=== PATIENT | female | born 1955 | race Caucasian/White ===

== ENCOUNTER 2023-02-04 07:58 | Observation (INO) ==
[~2023-02-04 07:58] MED LIST: Buffered Lidocaine 1% SYRIN 1 ml INTRADERM ONE; Lactated Ringers 1000 ml BAG 1,000 ML IV SCH
[2023-02-04] MEDS ORDERED: Dexamethasone IV 4 MG/ML VIAL 1 ml VIAL ONE ×2 (08:33→12:11)
[2023-02-04] MEDS ORDERED: Ondansetron 4 mg VIAL 2 MG/ML 2 ml VIAL ONE ×3 (08:33→16:15)
[2023-02-04] MEDS ORDERED: Propofol 10 MG/ML 20 ML BTL ONE ×2 (08:33→11:14)
[2023-02-04] MEDS ORDERED: Metoclopramide 5 MG/ML VIAL (10 mg) ONE (08:33)
[2023-02-04] MEDS ORDERED: Succinylcholine 200 mg VIAL 20 mg/ml 10 ml VIAL (200 mg) ONE ×2 (08:33→11:14)
[2023-02-04] MEDS ORDERED: Rocuronium 50 mg VIAL 10 mg/ml 5 ml VIAL (50 mg) ONE (08:33)
[2023-02-04] MEDS ORDERED: fentaNYL 250 mcg/5 ml 50 MCG/ML 5 ml VIAL (250 MCG) ONE (08:34)
[2023-02-04] MEDS ORDERED: Lidocaine 2% w EPI 1:100,000 20 ML MDV VIAL ONE (09:50)
[2023-02-04] MEDS ORDERED: Midazolam 2 mg/2 ml VIAL 1 mg/ml 2 ml VIAL (2 mg) ONE (10:07)
[2023-02-04] MEDS ORDERED: fentaNYL 100 mcg/2 ml 50 MCG/ML VIAL ONE ×4 (10:07→16:14)
[2023-02-04] MEDS ORDERED: Lidocaine 2% PF 5 ML VIAL ONE ×2 (11:14→14:21)
[2023-02-04] MEDS ORDERED: Phenylephrine 40 mcg/mL 10mL (400mcg) SYRINGE ONE (11:51)
[2023-02-04] MEDS ORDERED: Phenylephrine IV 10 MG/ML 1 ml VIAL ONE (11:54)
[2023-02-04] MEDS ORDERED: Acetaminophen IV 1 GM/100ML 1,000 MG/100 ML BAG IV ONE (14:15)
[2023-02-04] MEDS ORDERED: Acetaminophen IV 1 GM/100ML 1,000 MG/100 ML BAG IV PRN (15:26)
[2023-02-04] MEDS ORDERED: HYDROmorphone 1 MG/1 ML SYRINGE IV PRN (15:26)
[2023-02-04] MEDS ORDERED: Naloxone 0.4 mg VIAL 0.4 mg/ml 1 ml VIAL IV PRN (15:26)
[2023-02-04] MEDS ORDERED: Ondansetron 4 mg VIAL 2 MG/ML 2 ml VIAL IV PRN ×2 (15:26→20:00)
[2023-02-04] MEDS: fentaNYL 100 mcg/2 ml 50 MCG/ML VIAL IV PRN ×2 (16:18→17:00)
[2023-02-04] MEDS ORDERED: oxyCODONE 5 mg/5 ml ORAL.SOLN UDC ONE (16:54)
[2023-02-04] MEDS: oxyCODONE 5 mg/5 ml ORAL.SOLN UDC PO PRN ×2 (17:00→21:43)
[2023-02-04] MEDS ORDERED: oxyCODONE 5 mg/5 ml ORAL.SOLN UDC PO PRN (18:00)
[2023-02-04] MEDS: Calcium Carb (TUMS) 500 mg CHEW TAB PO SCH ×3 (18:46→21:35)
[2023-02-04] MEDS: Enoxaparin 40 MG/0.4 ML SYR SUBCUT SCH (20:13)
[2023-02-05] MEDS: oxyCODONE 5 mg/5 ml ORAL.SOLN UDC PO PRN ×4 (04:43→21:33)
[2023-02-05] MEDS: Calcium Carb (TUMS) 500 mg CHEW TAB PO SCH ×5 (05:21→21:24)
[2023-02-05 07:01] LABS: ABS Lymphocytes 1.3 10^3/ul (1.0-4.8); ABS Monocytes 0.8 10^3/ul (0-0.8); Hematocrit 36 % (35-47); Hemoglobin 13.1 g/dL (12.0-16.0); Lymphocyte % 11.9 %; Mean Corpuscular Hemoglobin 32 pg (27-31); Mean Corpuscular Hgb Conc 36 g/dL (31-36); Mean Corpuscular Volume 88 fL (80-97); Mean Platelet Volume 7.5 fL (7.4-10.4); Platelet Count 270 10^3/uL (150-450); Red Blood Count 4.12 10^6 /uL (3.70-4.87); Red Cell Distribution Width 12 % (10-15); White Blood Count 11.1 10^3/uL (3.5-10.8)
[2023-02-05 07:35] LABS: Calcium 8.5 mg/dL (8.6-10.3); Creatinine, Serum 0.67 mg/dL (0.51-0.95); Magnesium 1.9 mg/dL (1.9-2.7); Potassium 3.8 mmol/L (3.5-5.0); eGFR CKD-EPI 95.7 (>60)
[2023-02-05] MEDS: Enoxaparin 40 MG/0.4 ML SYR SUBCUT SCH (21:24)
[2023-02-06] MEDS: Calcium Carb (TUMS) 500 mg CHEW TAB PO SCH ×2 (05:34→08:44)
[2023-02-06] MEDS: Calcium Carbonate LIQ 1,250 mg/5 ml UDC PO SCH ×2 (09:54→14:25)
[2023-02-06 15:22] VITALS: BP 118/75
[2023-02-06] MEDS: oxyCODONE 5 mg/5 ml ORAL.SOLN UDC PO PRN (16:05)
== END 2023-02-06 16:40 | disposition home or self-care (01) ==
LOC: OR 07:58 → SSU 07:58
PROVIDERS: ADMIT Internal Medicine; ATTEND Internal Medicine